=== PATIENT | female | born 1985 ===

== ENCOUNTER → 2018-01-09 | Outpatient (CLI) | payer BC ==
[2018-01-09 12:11] LABS: Urine Bacteria FEW /hpf (None Seen); Urine Blood Negative /uL (Negative); Urine Specific Gravity 1.017 (1.001-1.035); Urine WBC 1 /hpf (0 - 5)
[2018-01-09 12:12] LABS: Basophils # (auto) 0.1 uL; Basophils % (auto) 1.2 % (0.0-2.0); Eosinophils # (auto) 0.2 uL; Eosinophils % (auto) 3.3 % (0.0-7.0); Hematocrit 39.1 % (36.0-46.0); Hemoglobin 13.2 g/dL (12.2-16.2); Lymphocytes # (auto) 2.2 uL; Lymphocytes % (auto) 36.7 % (10.0-50.0); Mean Corpuscular Hemoglobin 29.8 pg (28.0-32.0); Mean Corpuscular Hgb Conc. 33.8 g/dL (32.0-36.0); Mean Corpuscular Volume 88.4 fL (80.0-100.0); Monocytes # (auto) 0.4 uL; Monocytes % (auto) 6.5 % (0.0-12.0); Neutrophils # (auto) 3.1 uL; Neutrophils % (auto) 52.3 % (37.0-80.0); Platelet Count (auto) 319 10^3/uL (140-450); Red Blood Cells 4.42 10^6/uL (4.0-5.20); Red Cell Distribution Width 15.9 % (11.8-14.3); White Blood Cell 5.9 10^3/uL (4.4-10.8)
[2018-01-09 12:39] LABS: Prolactin 15.56 ng/mL (2.8-29.2)
[2018-01-09 12:40] LABS: Follicle Stimulating Hormone 8.34 IU/L (SEE BELOW); Free T4 (Free Thyroxine) 1.2 ng/dL (0.89-1.76)
[2018-01-09 13:17] LABS: Albumin 4.2 g/dL (3.4-5.0); BUN/Creatinine Ratio 12.5; Bilirubin, Total 0.4 mg/dL (0.2-1.0); Calcium 9.2 mg/dL (8.5-10.1); Potassium 4.1 mmol/L (3.5-5.1); Total Protein 8.6 g/dL (6.4-8.2)
== END | disposition home or self-care (01) ==
LOC: LAB 10:56
PROVIDERS: ATTEND Internal Medicine
DX: Z00.01 Encounter for general adult medical examination with abnormal findings (principal); N96 Recurrent pregnancy loss
CPT/HCPCS: 36415; 80053; 80061; 81001; 82672; 83001; 84146; 84439; 84443; 85025; 86225; 86235

== ENCOUNTER → 2018-02-28 | Outpatient (CLI) | payer BC ==
[2018-03-01 07:06] LABS: Immunoglobulin G, Serum 1450 mg/dL (700-1600)
== END | disposition home or self-care (01) ==
LOC: LAB 14:12
PROVIDERS: ATTEND Internal Medicine
DX: N96 Recurrent pregnancy loss (principal)
CPT/HCPCS: 36415; 81241; 82232; 82784; 83036; 85302; 85306; 85613; 85670; 85705; 85732

== ENCOUNTER → 2018-04-18 | Outpatient (CLI) | payer BC | END | disposition home or self-care (01) | LOC: LAB 14:40 | PROVIDERS: ATTEND Internal Medicine | DX: N91.2 Amenorrhea, unspecified (principal) | CPT/HCPCS: 36415; 84702 ==

== ENCOUNTER → 2018-05-28 | Outpatient (CLI) | payer BC | END | disposition home or self-care (01) | LOC: LAB 15:35 | PROVIDERS: ATTEND Internal Medicine | DX: O26.20 Pregnancy care for patient with recurrent pregnancy loss, unspecified trimester (principal); Z3A.00 Weeks of gestation of pregnancy not specified | CPT/HCPCS: 36415; 84702 ==

== ENCOUNTER → 2018-05-29 | Outpatient (CLI) | payer BC | END | disposition home or self-care (01) | LOC: LAB 09:23 | PROVIDERS: ATTEND Obstetrics & Gynecology | DX: N91.2 Amenorrhea, unspecified (principal) | CPT/HCPCS: 36415; 84144; 84702 ==

== ENCOUNTER → 2018-05-31 | Outpatient (CLI) | payer BC | END | disposition home or self-care (01) | LOC: LAB 15:21 | PROVIDERS: ATTEND Obstetrics & Gynecology | DX: N91.2 Amenorrhea, unspecified (principal) | CPT/HCPCS: 36415; 84702 ==

== ENCOUNTER → 2018-06-04 | Outpatient (CLI) | payer BC | END | disposition home or self-care (01) | LOC: LAB 16:11 | PROVIDERS: ATTEND Obstetrics & Gynecology | DX: O03.4 Incomplete spontaneous abortion without complication (principal) | CPT/HCPCS: 36415; 84144; 84702 ==

== ENCOUNTER → 2018-06-20 | Outpatient (CLI) | payer BC | END | disposition home or self-care (01) | LOC: LAB 09:59 | PROVIDERS: ATTEND Obstetrics & Gynecology | DX: N91.2 Amenorrhea, unspecified (principal) | CPT/HCPCS: 36415; 84702 ==